=== PATIENT | male | born 1970 | race African-American/Black ===

== ENCOUNTER 2023-05-12 09:24 | Emergency (ER) | payer OTHER ==
[~2023-05-12] VITALS: Ht 188 cm; Wt 126.3 kg
[2023-05-12] MEDS ORDERED: LET TOPICAL SOLN 5 ML TOP ONE (09:45)
[2023-05-12] MEDS ORDERED: LIDOCAINE 1% HCL (LOCAL ANESTH.) INJ 20ML MDV IJ ONE (09:45)
[2023-05-12 09:58] VITALS: BP 149/98; PULSE 79; RESP 18; O2SAT 98
== END 2023-05-12 10:06 | disposition home or self-care (01) ==
LOC: ER 09:24
DX: S61.213A Laceration without foreign body of left middle finger without damage to nail, initial encounter (principal); E11.9 Type 2 diabetes mellitus without complications; E78.5 Hyperlipidemia, unspecified; I10 Essential (primary) hypertension; Z88.4 Allergy status to anesthetic agent; W25.XXXA Contact with sharp glass, initial encounter; Y93.89 Activity, other specified; Y92.89 Other specified places as the place of occurrence of the external cause; Y99.8 Other external cause status
CPT/HCPCS: 12002; 99282; J3490